=== PATIENT | male | born 1950 | race Caucasian/White ===

== ENCOUNTER → 2018-04-03 | Outpatient (CLI) | payer MEDICARE, OTHER ==
[~2018-04-03] MED LIST: ALIS150T PO; ASPI81EC PO; CEPH500 PO; FELO5CR PO; FENO145 PO; FISH1000 PO; GLUC500 PO; HYDCHL12.5 PO; METO100ER PO; OLME40 PO; ROSU10TA PO; SULTRIDS PO
== END | disposition home or self-care (01) ==
LOC: LAB 12:45 → LAB SHORT 12:45
DX: G60.9 Hereditary and idiopathic neuropathy, unspecified (principal)
CPT/HCPCS: 82607; 82746

== ENCOUNTER 2023-09-17 07:59 | Day surgery (SDC) | payer MEDICARE, OTHER ==
[~2023-09-17] VITALS: Ht 190.5 cm; Wt 148.8 kg
[2023-09-17] VITALS (21 sets, daily range): BP systolic 121–181; BP diastolic 61–99
[~2023-09-17 07:59] MED LIST changes: +FURO40 PO; +IBUP200 PO; +KLOR-CON 1010 ME5 PO; +LATA.005SO BOTHEYES; +LOSA50 PO; +PREVIDENT 5000100 ML DT; +Phentermine HCl30 MG PO; +VITAMIN B12 INJ; +VITAMIN D310 MC4 PO
--- NOTE | 2023-09-17 10:22 | NUR ---
Ambulatory in Day Surgery. History, Chart, Medications and Allergies reviewed before start of procedure.Patient confirms NPO status and agrees with scheduled surgery. Pre-Op teaching done. Pt verbalizes understanding.
--- NOTE | 2023-09-17 11:50 | NUR ---
09/17/23 1150 Monie Macdonald DRIED BLOOD NOTED TO L 1ST TOE, DR. WALSH AWARE.
--- NOTE | 2023-09-17 15:53 | NUR ---
Pt. is resting in bed, but reponds when I enter the room. Pt. welcomes my visit and is pleasant. Facilitate a short life review and begin to establish rapport. Pt. diplays evidence of being engaged and aware. Pt. verbalized gratitude for the spiritual care visit, and welcomed this hot pipe gauger to return.
--- NOTE | 2023-09-17 17:09 | NUR ---
SHIFT SUMMARY S/P LTKA PT UNABLE TO MOVE LEGS OR FEEL FROM THIGH DOWN ON ARRIVAL TO UNIT. CAN NOW WIGGLE TOES AND LIFT LEGS. NO URGE TO VOID YET, BLADDER SCAN NEEDED. PT TOLERATING PO WELL, NO NAUSEA. MEDICATED FOR PAIN PER EMAR. DRESSING TO KNEE IS CDI. POLAR LARY ON. PT DID NOT WORK WITH THERAPY TODAY. PLAN WILL BE FOR THERAPY TOMORROW AND TO WALK TO RESTROOM TONIGHT ONCE HE HAS FULL SENSATION.
[2023-09-18 00:37] VITALS: BP 154/76
[2023-09-18 04:07] VITALS: BP 143/70
[2023-09-18 04:55] LABS: BASOPHILS ABSOLUTE AUTO 0.04 K/mm3 (0.00-0.23); BASOPHILS PERCENT AUTO 1 % (0-2); EOSINOPHILS ABSOLUTE AUTO 0.31 K/mm3 (0.00-0.68); EOSINOPHILS PERCENT AUTO 5 % (0-6); Hematocrit 32.5 % (37.0-53.0); Hemoglobin 10.7 g/dL (13.5-17.5); IMMATURE GRAN ABSOLUTE AUTO 0.01 K/mm3 (0.00-0.10); IMMATURE GRAN PERCENT AUTO 0 % (0-1); LYMPHOCYTES ABSOLUTE AUTO 1.13 K/mm3 (0.84-5.20); LYMPHOCYTES PERCENT AUTO 18 % (21-46); MONOCYTES ABSOLUTE AUTO 0.72 K/mm3 (0.16-1.47); MONOCYTES PERCENT AUTO 11 % (4-13); Mean Corpuscular HGB 29.7 pg (26.0-34.0); Mean Corpuscular HGB Conc 32.9 g/dL (31.5-36.5); Mean Corpuscular Volume 90 fL (80-100); Mean Platelet Volume 10.8 fL (9.1-12.4); NEUTROPHILS ABSOLUTE AUTO 4.16 K/mm3 (1.96-9.15); NEUTROPHILS PERCENT AUTO 65 % (41-73); Platelet Count 174 K/mm3 (150-400); RDW Coefficient Variation 13.8 % (11.7-14.2); RDW Standard Deviation 45.1 fL (35.1-46.3); White Blood Cell Count 6.37 K/mm3 (4.00-11.30)
[2023-09-18 05:13] LABS: Bun/Creatinine Ratio 14.1 (12.0-20.0); Calcium, Blood 8.3 mg/dL (8.5-10.1); Creatinine, Blood 0.85 mg/dL (0.60-1.20); Potassium, Blood 3.9 mmol/L (3.5-5.5)
--- NOTE | 2023-09-18 05:42 | NUR ---
SHIFT SUMMARY POD1 L TKA. DRESSING IS C/D/I. SENSATION AND CIRCULATION REMAINS INTACT. VSS, MILD BRADYCARDIA NOTED. PT REMAINS ASYMPTOMATIC. PT AMBULATED TO THE BATHROOM MULTIPLE TIMES T/O THE NIGHT, VOIDING W/O DIFFICULTY. MEDICATED FOR PAIN WITH PRN'S WITH GOOD RESULTS. TOLLERATING PO W/O N/V. PLAN FOR PT THIS AM AND THEN D/C HOME.
[2023-09-18 07:27] VITALS: BP 151/73
[2023-09-18] MEDS ORDERED: ASPI81CH PO (08:23)
[2023-09-18] MEDS ORDERED: SULTRIDS PO (08:24)
[2023-09-18] MEDS ORDERED: Percocet 5-3251 EACH PO (08:24)
--- NOTE | 2023-09-18 10:44 | NUR ---
THIS NURSE CALLED IN THE BACTRIM AND ASA PERSCRIPTION TO [facility] PER PATIENTS AND FAMILIES REQUEST.
[2023-09-18 14:45] VITALS: BP 151/72
--- NOTE | 2023-09-18 15:53 | NUR ---
DISCHARGE NOTE: PATIENT WAS EDUCATED ON DISCHARGE INSTRUCTIONS. HE VERBALIZED UNDERSTANDING OF INSTRUCTIONS AND HAD NO FURTHER QUESTIONS AT THIS TIME. HARD PERSCRIPTIONS WERE GIVEN TO FAMILY MEMBER AND HIS ABX AND ASA PERSCRIPTION WERE CALLED IN TO [facility]. HIS LEFT KNEE HAS AN ERIKA WRAP AND AQUACEL THAT ARE C/D/I. DENIES NUMBNESS OR TINGLING IN ALL EXTREMETIES. HE IS A SBA WITH FWW AND GAIT BELT. HE IS TOLERATING PO INTAKE AND IS VOIDING. PATIENT IS DRESSED AND HAS PERSONAL ITEMS IN THE ROOM GATHERED. AWAITING FOR HIS RIDE TO COME PICK HIM UP TO TAKE HIM HOME.
--- NOTE | 2023-09-18 16:23 | NUR ---
Pt. is dressed in a recliner waiting to be picked up for discharge when he welcomes my visit. Re-established rapport and considered matters of personal interest to the Pt. Pt. displayed evidence of openness and engagement. Pt. verbalized gratitude for the spiritual care visit.
--- NOTE | 2023-09-18 16:33 | NUR ---
patient was wheelchaired out to his familys car to be taken home.
== END 2023-09-18 16:34 | disposition home or self-care (01) ==
LOC: ORSCMMR 07:59 → ORD 10:00 → ORSCMMR 10:00 → ORD 10:45 → SURS 14:32 → ORSCMMR 09-18 16:34
PROVIDERS: Orthopaedic Surgery
PROC: 0SRD0JA Replacement of Left Knee Joint with Synthetic Substitute, Uncemented, Open Approach (ICD-10-PCS; principal; 2023-09-17 10:00)
DX: M17.12 Unilateral primary osteoarthritis, left knee (principal); I10 Essential (primary) hypertension; G47.33 Obstructive sleep apnea (adult) (pediatric); Z79.899 Other long term (current) drug therapy; E66.01 Morbid (severe) obesity due to excess calories; Z68.41 Body mass index [BMI] 40.0-44.9, adult
CPT/HCPCS: 36415; 73560-LT; 80048; 85025; 97110; 97116; 97161; 97530; A9270; C1713; C1776; J0171; J0690; J0735; J1885; J2250; J2371; J2704; J2795; J3010; J7120

== ENCOUNTER → 2024-08-03 | Outpatient (CLI) | payer MEDICARE, OTHER ==
[~2024-08-03] MED LIST changes: +ASPI81CH PO; +Percocet 5-3251 EACH PO
[2024-08-04 12:59] LABS: Stool Occult Bld Immuno 1 Negative (NEGATIVE)
== END ==
LOC: LAB 09:48 → LAB SHORT 09:48
PROVIDERS: Family Medicine
DX: D64.9 Anemia, unspecified (principal)
CPT/HCPCS: G0328

== ENCOUNTER → 2024-11-05 | Outpatient (CLI) | payer MEDICARE ==
[2024-11-05 14:19] LABS: Bun/Creatinine Ratio 12.1 (12.0-20.0); Calcium, Blood 9.6 mg/dL (8.5-10.1); Creatinine, Blood 0.83 mg/dL (0.60-1.20); Potassium, Blood 4.1 mmol/L (3.5-5.5)
== END | disposition home or self-care (01) ==
LOC: LAB 12:16 → LAB SHORT 12:16 → LAB FUT 07-31 09:55
PROVIDERS: Orthopaedic Surgery
DX: M17.11 Unilateral primary osteoarthritis, right knee (principal); D64.9 Anemia, unspecified
CPT/HCPCS: 36415; 80048

== ENCOUNTER 2024-11-19 13:18 | Day surgery (SDC) | payer MEDICARE, OTHER ==
[2024-11-19] VITALS (11 sets, daily range): BP systolic 122–198; BP diastolic 44–95
[~2024-11-19] VITALS: Ht 190.5 cm; Wt 149.1 kg
[~2024-11-19 13:18] MED LIST changes: +Acetaminophen 500 MG Tab PO SCH; +CeFAZolin Sodium 3,000 MG in NS 100 ML IV SCH; +Chlorhexidine Mouth Care 15 ML UDC MT SCH; +Lactated Ringer's 1,000 ML IV SCH; +OxyCODONE HCL 10 MG TABCR PO SCH; +Ropivacaine 0.5% HCl/Pf 123.125 MG,EPINEPHrine HCL 0.25 MG,Ketorolac Tromethamine 15 MG... INFIL SCH; +Tranexamic Acid 100 ML IV SCH
[2024-11-19] MEDS ORDERED: Ondansetron HCl 2 MG / ML 2ML Vial ONE (14:16)
[2024-11-19] MEDS ORDERED: Midazolam HCl 1MG / ML 2ML Vial ONE (14:16)
[2024-11-19] MEDS ORDERED: Metoclopramide HCl 5MG / ML 2ML Vial ONE (14:16)
[2024-11-19] MEDS ORDERED: HYDROmorphone HCl/Pf 1MG SYR ONE (14:16)
[2024-11-19] MEDS ORDERED: Magnesium Sulfate 500 MG / ML 2ML Vial ONE (14:42)
[2024-11-19] MEDS ORDERED: propofoL 50 ML IV ONE (14:43)
[2024-11-19] MEDS ORDERED: Magnesium Hydroxide Conc 10 ML UDC PO PRN (15:15)
[2024-11-19] MEDS ORDERED: Lactated Ringer's 1,000 ML IV SCH (15:15)
[2024-11-19] MEDS ORDERED: Ondansetron HCl 2 MG / ML 2ML Vial IV PRN (15:15)
[2024-11-19] MEDS ORDERED: FLU VACC TS2024-25(6MOS UP)/PF 45 MCG/0.5 ML SYRINGE IM PRN (15:20)
[2024-11-19] MEDS ORDERED: DiphenhydrAMINE HCL 25 MG Cap PO PRN (15:20)
[2024-11-19] MEDS ORDERED: Metoclopramide HCl 5MG / ML 2ML Vial IV PRN (15:20)
[2024-11-19] MEDS ORDERED: Bisacodyl 10 MG Supp PR PRN (15:20)
[2024-11-19] MEDS ORDERED: HYDROmorphone HCl/Pf 1MG SYR IV PRN (15:20)
[2024-11-19] MEDS ORDERED: Promethazine HCl 25 MG Tab PO PRN (15:25)
[2024-11-19] MEDS ORDERED: OxyCODONE HCL 5 MG TAB PO PRN ×2 (15:25)
[2024-11-19] MEDS ORDERED: Phenylephrine HCl 100 MCG/ML-NS 10MLSYR (1MG/10ML) ONE (15:33)
[2024-11-19] MEDS ORDERED: Phenylephrine HCl 10mg/ml 1 ml Vial ONE (15:34)
[2024-11-19] MEDS ORDERED: Acetaminophen 500 MG Tab PO SCH (16:00)
--- NOTE | 2024-11-19 16:03 | NUR ---
11/19/24 1603 Kristin Hassan NOTED BEFORE START OF SURGERY TO OPERATIVE LEG: ECCYMOSIS TO RIGHT THIGH YELLOWISH IN COLOR +3 PITTING EDEMA TO RIGHT LOWER CALF AND FOOT, SKIN WAS RED AND WARM TO THE TOUCH MD AWARE, OK TO PROCEED, MD ACKNOWLEDGED DURING TIME OUT HEALING PROCESS WOULD BE SLOW, SEE MD POST OP NOTES
[2024-11-19] MEDS ORDERED: propofoL 20 ML IV ONE ×2 (16:47→16:49)
[2024-11-19] MEDS ORDERED: Glycopyrrolate 0.2 MG/ML 5ML VIAL ONE (16:47)
[2024-11-19] MEDS ORDERED: FentaNYL Citrate 50 MCG/ML 2 ML Injection ONE (17:10)
[2024-11-19] MEDS ORDERED: Ketorolac Tromethamine 15mg Vial IV SCH (18:00)
[2024-11-19] MEDS ORDERED: Docusate Sodium 100 MG Cap PO SCH (21:00)
[2024-11-20] MEDS ORDERED: CeFAZolin Sodium 3,000 MG in NS 100 ML IV SCH
[2024-11-20 01:05] VITALS: BP 150/61
[2024-11-20 03:52] VITALS: BP 159/77
[2024-11-20 05:44] LABS: BASOPHILS ABSOLUTE AUTO 0.05 K/mm3 (0.00-0.23); BASOPHILS PERCENT AUTO 1 % (0-2); EOSINOPHILS ABSOLUTE AUTO 0.16 K/mm3 (0.00-0.68); EOSINOPHILS PERCENT AUTO 2 % (0-6); Hematocrit 32.1 % (37.0-53.0); Hemoglobin 10.3 g/dL (13.5-17.5); IMMATURE GRAN ABSOLUTE AUTO 0.02 K/mm3 (0.00-0.10); IMMATURE GRAN PERCENT AUTO 0 % (0-1); LYMPHOCYTES ABSOLUTE AUTO 0.84 K/mm3 (0.84-5.20); LYMPHOCYTES PERCENT AUTO 11 % (21-46); MONOCYTES ABSOLUTE AUTO 0.79 K/mm3 (0.16-1.47); MONOCYTES PERCENT AUTO 10 % (4-13); Mean Corpuscular HGB 28.1 pg (26.0-34.0); Mean Corpuscular HGB Conc 32.1 g/dL (31.5-36.5); Mean Corpuscular Volume 88 fL (80-100); Mean Platelet Volume 11.5 fL (9.1-12.4); NEUTROPHILS ABSOLUTE AUTO 5.81 K/mm3 (1.96-9.15); NEUTROPHILS PERCENT AUTO 76 % (41-73); Platelet Count 173 K/mm3 (150-400); RDW Coefficient Variation 15.3 % (11.7-14.2); RDW Standard Deviation 49.1 fL (35.1-46.3); Red Blood Cell Count 3.66 M/mm3 (4.30-5.90); White Blood Cell Count 7.67 K/mm3 (4.00-11.30)
[2024-11-20 06:08] LABS: Bun/Creatinine Ratio 13.9 (12.0-20.0); Calcium, Blood 8.6 mg/dL (8.5-10.1); Creatinine, Blood 0.86 mg/dL (0.60-1.20); Magnesium, Blood 2.1 mg/dL (1.6-2.4); Potassium, Blood 4.6 mmol/L (3.5-5.5)
[2024-11-20 07:43] VITALS: BP 163/82
--- NOTE | 2024-11-20 07:49 | NUR ---
SHIFT SUMMARY POD 1 S/P RIGHT TKA. KING DRESSING INTACT AND COMPRESSED, SCANT AMOUNT OF EXUDATE NOTED FROM PREVIOUS SHIFT. ERIKA WRAP TO RLE IN PLACE. SCDS AND COMPRESSION STOCKING TO BLE; 3+ EDEMA NOTED T/O SHIFT. PT REPORTS EDEMA AT BASELINE. PAIN MANAGED PER EMAR. DENIES N/V, LALITHA REG DIET. ABX INFUSED PER ORDERS. PT UNABLE TO VOID POST OP, BLADDER SCAN AND STRAIGHT CATH COMPLETED PER PROTOCOL. 2 PERSON MAX ASSIST TO CHAIR WITH FWW AND GB. PT UNABLE TO TOLERATE MORE THAN 3 STEPS OF WALKING R/T WEAKNESS. PLAN TO WORK WITH THERAPY TODAY. PT CURRENTLY DRESSED AND IN CHAIR, BLE ELEVATED WITH CRYO TO RIGHT KNEE. REPORT GIVEN TO DAY RN.
[2024-11-20] MEDS ORDERED: Apixaban 5 MG Tab PO SCH (09:00)
[2024-11-20 14:30] VITALS: BP 165/93
--- NOTE | 2024-11-20 18:14 | NUR ---
SUMMARY PATIENT TO STAY ANOTHER NIGHT TO OBSERVE KNEE INCISION FOR SWELLING. PATIENT WORKED WITH THERAPY, WALKED HALLS, VOIDED IN BATHROOM THIS AFTERNOON, BLADDER SCAN WAS 306. DENIES PAIN, N/T. KING TO SX INTACT AND S/S DRNG NOTED. LYMPHADEMA TO MICAELA LAUGHLIN, PATIENT REPORTS AT BASELINE. TOLERATING PO INTAKE. CALL LIGHT IN REACH.
[2024-11-20 19:52] VITALS: BP 160/69
--- NOTE | 2024-11-21 00:51 | NUR ---
REPORT TAKEN FROM NINOSKA PLEITEZ RN TO ASSUME CARE OF PT AT THIS TIME. PT IS RESTING IN BED AT THIS TIME.
--- NOTE | 2024-11-21 04:15 | NUR ---
SHIFT SUMMARY ASSUMED CARE OF PT SHORTLY AFTER MIDNIGHT. PT HAS BEEN RESTING IN BED SINCE THAT TIME. S/P RIGHT KNEE REPLACEMENT. PAIN HAS BEEN MANAGED WITH MEDS PER EMAR. PT HAS BEEN VOIDING, NO ISSUES WITH RETENTION. MOST RECENT BLADDER SCAN PERFORMED SHORTLY BEFORE MIDNIGHT REVEALED 1ML OF URINE POST VOID. VITALS ARE STABLE. PLAN OF CARE REMAINS UNCHANGED. PLAN IS FOR DC TODAY. BED IN LOWEST POSITION, CALL LIGHT WITHIN REACH.
[2024-11-21 05:17] VITALS: BP 115/66
[2024-11-21 07:34] VITALS: BP 123/63
--- NOTE | 2024-11-21 11:12 | NUR ---
DR FITZPATRICK IN TO SEE PT. OKAY TO DC HOME. CHANGED DRESSING TO INFERIOR INCISION D/T SATURATION W/SEROUS FLUID. PROVIDED AQUACEL DRESSINGS AND ERIKA WRAP FOR PT TO TAKE HOME. DR FITZPATRICK INSTRUCTED PT TO FOLLOW UP W/DR WALSH THIS UPCOMING WEEK. PLACED REFERRAL IN DC PLANS AND INSTRUCTED PT TO CALL FOR APPOINTMENT ON SATURDAY. REVIEWED DC INSTRUCTIONS WITH PT; VERBALIZED UNDERSTANDING.
[2024-11-21 11:14] VITALS: BP 133/60
--- NOTE | 2024-11-21 11:25 | NUR ---
DISCHARGED PT LEFT UNIT IN WC W/POSSESSIONS AND DC PAPERWORK IN HAND TO MEET RIDE OUTSIDE.
== END 2024-11-21 11:25 | disposition home or self-care (01) ==
LOC: ORSCMMR 13:18 → ORD 15:30 → ORSCMMR 15:30 → SURS 18:26 → ORSCMMR 11-21 11:25 → SURS 11-21 11:25
PROVIDERS: Orthopaedic Surgery
PROC: 8E0Y0CZ Robotic Assisted Procedure of Lower Extremity, Open Approach (ICD-10-PCS; principal; 2024-11-19 15:30)
PROC: 0SRC0JA Replacement of Right Knee Joint with Synthetic Substitute, Uncemented, Open Approach (ICD-10-PCS; principal; 2024-11-19 15:30)
DX: M17.11 Unilateral primary osteoarthritis, right knee (principal); I10 Essential (primary) hypertension; G47.33 Obstructive sleep apnea (adult) (pediatric); E66.01 Morbid (severe) obesity due to excess calories; Z68.41 Body mass index [BMI] 40.0-44.9, adult; Z79.899 Other long term (current) drug therapy; Z79.01 Long term (current) use of anticoagulants
CPT/HCPCS: 36415; 73560-RT; 80048; 83735; 85025; 97110; 97116; 97162; A9270; C1713; C1776; J0171; J0690; J0735; J1171; J1885; J2250; J2371; J2405; J2704; J2765; J2795; J3010; J3475; J7120

== ENCOUNTER → 2025-02-10 | Outpatient (CLI) | payer MEDICARE, OTHER ==
[~2025-02-10] MED LIST changes: -Acetaminophen 500 MG Tab PO SCH; -CeFAZolin Sodium 3,000 MG in NS 100 ML IV SCH; -Chlorhexidine Mouth Care 15 ML UDC MT SCH; -Lactated Ringer's 1,000 ML IV SCH; -OxyCODONE HCL 10 MG TABCR PO SCH; -Ropivacaine 0.5% HCl/Pf 123.125 MG,EPINEPHrine HCL 0.25 MG,Ketorolac Tromethamine 15 MG... INFIL SCH; -Tranexamic Acid 100 ML IV SCH
[2025-02-12 13:03] LABS: Stool Occult Bld Immuno 1 Negative (NEGATIVE)
== END ==
LOC: LAB 10:30 → LAB SHORT 10:30
PROVIDERS: Family Medicine
DX: R71.0 Precipitous drop in hematocrit (principal)
CPT/HCPCS: G0328

== ENCOUNTER 2025-05-05 08:27 | Day surgery (SDC) | payer MEDICARE, OTHER ==
[~2025-05-05] VITALS: Ht 190.5 cm; Wt 143.5 kg
[2025-05-05 09:43] VITALS: BP 179/75
--- NOTE | 2025-05-05 10:21 | NUR ---
05/05/25 Alissa1 Marlena Soriano 1016-INTO ENDO 1. CONFIRMED AND REVIEWED H&P, MEDCICATIONS, ALLERGIES, MEDICAL HISTORY, RESPIRATORY HISTORY, VITAL SIGNS, 3-LEAD EKG, CONSENTS, AND PHYSICIAN ORDERS. PATIENT CONFIRMS NPO STATUS AND AGREES WITH SCHEDULED PROCEDURE. MONITOR INTACT WITH CONTINUOUS PULSE OXIMETRY, CAPNOGRAPHY, 3-LEAD EKG, INTERMITTENT BP. SUPPLEMENTAL O2 TO BE TITRATED THROUGHOUT PROCEDURE TO MAINTAIN O2 SATURATION ABOVE 90%. PATIENT DETERMINED TO BE ASA APPROPRIATE FOR MAC-SEE ANESTHESIA RECORD.
[2025-05-05 11:13] VITALS: BP 150/77
--- NOTE | 2025-05-05 11:22 | NUR ---
Discharge instructions reviewed with patient. Patient verbalizes understanding. Copy given to patient to take home. Patient States Post-Procedure ride home has been arranged WITH GÉNESIS. Discharged via wheelchair to private car for ride home.
== END 2025-05-05 11:44 | disposition home or self-care (01) ==
LOC: ORSCMMR 08:27 → ORD 10:00 → ORSCMMR 10:00
PROVIDERS: Internal Medicine Gastroenterology
PROC: 0DB98ZX Excision of Duodenum, Via Natural or Artificial Opening Endoscopic, Diagnostic (ICD-10-PCS; principal; 2025-05-05 10:00)
PROC: 0DBK8ZX Excision of Ascending Colon, Via Natural or Artificial Opening Endoscopic, Diagnostic (ICD-10-PCS; principal; 2025-05-05 10:00)
PROC: 0DB68ZX Excision of Stomach, Via Natural or Artificial Opening Endoscopic, Diagnostic (ICD-10-PCS; principal; 2025-05-05 10:00)
DX: D50.0 Iron deficiency anemia secondary to blood loss (chronic) (principal); I10 Essential (primary) hypertension; R60.0 Localized edema; K31.9 Disease of stomach and duodenum, unspecified; K63.5 Polyp of colon; K44.9 Diaphragmatic hernia without obstruction or gangrene; K29.50 Unspecified chronic gastritis without bleeding; E66.01 Morbid (severe) obesity due to excess calories; Z68.41 Body mass index [BMI] 40.0-44.9, adult; G47.33 Obstructive sleep apnea (adult) (pediatric); E66.9 Obesity, unspecified; Z68.39 Body mass index [BMI] 39.0-39.9, adult; Z79.899 Other long term (current) drug therapy
CPT/HCPCS: 88305; 88342; J2704; J7120